=== PATIENT | male | born 1955 | race Two or more races ===

== ENCOUNTER 2017-11-04 01:16 | Emergency (ER) | payer OTHER ==
[2017-11-04] MEDS ORDERED: NS 0.9% 1000 ML* 1,000 ML IV ONE (01:41)
[2017-11-04] MEDS ORDERED: Pantoprazole IV* 40 MG IV ONE (01:42)
[2017-11-04] MEDS ORDERED: Tetan/Diph/Pertus SYR(Tdap)* 0.5 ML SYR(BOOSTRIX) use SYR IM ONE (01:42)
[2017-11-04 02:26] LABS: ABS Basophils 0.1 10^3/ul (0-0.2); ABS Eosinophils 0.1 10^3/ul (0-0.6); ABS Lymphocytes 1.8 10^3/ul (1.0-4.8); ABS Monocytes 1.3 10^3/ul (0-0.8); ABS Neutrophils 11.2 10^3/ul (1.5-7.7); ABS Nucleated RBC 0 10^3/ul; Eosinophil % 0.4 % (0-6); Hematocrit 46 % (42-52); Lymphocyte % 12.3 % (25-47); Mean Corpuscular HGB Conc 35 g/dl (31-36); Mean Corpuscular Hemoglobin 32 pg (27-31); Mean Corpuscular Volume 93 fL (80-94); Nucleated Red Blood Cells % 0; Platelet Count 254 10^3/ul (150-450); Red Blood Count 4.99 10^6/ul (4.00-5.40); Red Cell Distribution Width 13 % (10.5-15); White Blood Count 14.4 10^3/ul (3.5-10.8)
[2017-11-04 02:39] LABS: INR 0.94 (0.77-1.02)
[2017-11-04 02:43] LABS: EGFR Non-African American 73.2 (>60)
[2017-11-04 05:28] LABS: Urine Appearance Clear; Urine Blood 1+ (Negative); Urine Color Yellow; Urine Ketones Trace (Negative); Urine Protein Negative (Negative); Urine Specific Gravity 1.008 (1.010-1.030); Urine Urobilinogen Negative (Negative)
--- NOTE | 2017-11-04 07:00 | ED ---
Alejandrina Beavers Emily, scribed for Елена Lozoya MD on 11/04/17 at 0142 . Altered Mental Status - HPI Summary HPI Summary: This patient is a 62 year old M BIBA to [facility] with a chief complaint of altered mental status, confusion, which began COMPOSITION MOLDER. Pt reports that he tripped on the sidewalk. The patient rates the pain 0/10 in severity. Symptoms aggravated by nothing. Symptoms alleviated by nothing. Patient reports abrasion on left hand and burning sensation in chest. Per EMS, pt was wandering downtown and behaving confused. Per medical bracelet for epilepsy and memory loss. - History Of Current Complaint Chief Complaint: EDAltMentalStatus Stated Complaint: CONFUSION Time Seen by Provider: 11/04/17 01:23 Hx Obtained From: Patient Onset/Duration: Unknown, Still Present Timing: Constant, Lasting Hours Severity Initially: Mild Severity Currently: Mild Character: Confusion Aggravating Factor(s): Nothing Alleviating Factor(s): Nothing - Allergies/Home Medications Allergies/Adverse Reactions: Allergies Allergy/AdvReac Type Severity Reaction Status Date / Time No Known Allergies Allergy Verified 11/04/17 01:25 PMH/Surg Hx/FS Hx/Imm Hx Previously Healthy: No Sensory History: Denies: Hx Deafness Neurological History: Reports: Hx Seizures, Other Neuro Impairments/Disorders - Memory loss Infectious Disease History: No Infectious Disease History: Denies: Traveled Outside the [place] in Last 30 Days - Family History Known Family History: Positive: Unknown - Due to AMS - Social History Occupation: Unemployed Lives: With Family Alcohol Use: Occasionally Hx Substance Use: No Substance Use Type: Reports: None Hx Tobacco Use: No Smoking Status (MU): Never Smoked Tobacco Review of Systems Positive: Other - Positive burning sensation in chest Positive: Other - Positive abrasions Neurological: Other - Positive altered mental status All Other Systems Reviewed And Are Negative: Yes Physical Exam - Summary Physical Exam Summary: VITAL SIGNS: Reviewed. GENERAL: Patient is a well-developed and nourished male who is lying comfortable in the stretcher. Patient is not in any acute respiratory distress. HEAD AND FACE: No signs of trauma. No ecchymosis, hematomas or skull depressions. No sinus tenderness. EYES: PERRLA, EOMI x 2, No injected conjunctiva, no nystagmus. EARS: Hearing grossly intact. Ear canals and tympanic membranes are within normal limits. MOUTH: Oropharynx within normal limits. NECK: Supple, trachea is midline, no adenopathy, no JVD, no carotid bruit, no c- spine tenderness, neck with full ROM. CHEST: Symmetric, no tenderness at palpation LUNGS: Clear to auscultation bilaterally. No wheezing or crackles. CVS: Regular rate and rhythm, S1 and S2 present, no murmurs or gallops appreciated. ABDOMEN: Soft, Epigastric tenderness. No signs of distention. No rebound no guarding, and no masses palpated. Bowel sounds are normal. EXTREMITIES: FROM in all major joints, no edema, no cyanosis. Contraction of both hands. NEURO: Alert and oriented x 3. No acute neurological deficits. Speech is normal and follows commands. SKIN: Dry and warm. Multiple superficial lacerations over left hand Triage Information Reviewed: Yes Vital Signs On Initial Exam: Initial Vitals Temp Pulse Resp BP Pulse Ox 97.9 F 79 16 129/85 97 11/04/17 01:25 11/04/17 01:25 11/04/17 01:25 11/04/17 01:25 11/04/17 01:25 Vital Signs Reviewed: Yes Diagnostics - Vital Signs Vital Signs Temp Pulse Resp BP Pulse Ox 11/04/17 01:25 97.9 F 79 16 129/85 97 - Laboratory Result Diagrams: 11/04/17 02:15 11/04/17 02:15 Lab Statement: Any lab studies that have been ordered have been reviewed, and results considered in the medical decision making process. - CT Head CT CT Interpretation Completed By: Radiologist - Head CT reveals, per radiologist, postoperative changes without definite acute pathology. ED physician has reviewed this radiology report. - EKG 0147 Cardiac Rate: NL EKG Rhythm: Sinus Rhythm - 81 BPM EKG Interpretation: Normal axis. Normal interval. No ischemic changes Altered Mental Statu Course/Dx - Course Course Of Treatment: This patient is a 62 year old M BIBA to [facility] with a chief complaint of altered mental status, confusion, which began COMPOSITION MOLDER. He has an extensive history of seizures with multiple surgeries. Pt did likely have a seizure COMPOSITION MOLDER, resulting in his fall. Labs were unremarkable except for leukocytosis and mild irritation of CBK. We tried to contact the patients sister, as on record they live together. Sister was contacted three times, but was unreachable so a message was left. Pt cannot be discharged home by himself unless we know that his sister will pick him up or be expecting him. More medical history is needed regarding the severity of the seizures and the patient s baseline. Pt will remain in the ER pending social sciences lecturer consultation. Pt will be signed out to Dr. Sanches upon shift change pending social sciences lecturer consultation and dispo. - Diagnoses Provider Diagnoses: Seizure, Altered mental status Discharge - Sign-Out/Discharge Documenting (check all that apply): Sign-Out Patient Signing out patient TO: Austin Sanches - Upon shift change pending social sciences lecturer consult and dispo - Discharge Plan Condition: Stable Discharge Disposition Comment: Sign out to Dr. Sanches upon shift change Referrals: Non Staff,Doctor [Medical Doctor] - The documentation as recorded by the Alejandrina woods Emily accurately reflects the service I personally performed and the decisions made by me, Елена Lozoya MD.
--- NOTE | 2017-11-04 07:56 | RAD ---
Indication: Seizures. CT of the brain was performed without IV contrast. No prior study is available for comparison. The patient is status post left parietal temporal craniectomy. Encephalomalacia in the middle cranial fossa is noted. This is presumed to have been due to prior infarct or tumor resection. Clinical correlation is suggested. Bilateral thalamic neurostimulator is are noted. Prominent cerebellar atrophy is noted. Right cerebral hemisphere is otherwise unremarkable. The ventricles are normal in size. No midline shift is noted. Minimal mucosal thickening with air-fluid level in the right maxillary sinus. Ethmoid air cells are unremarkable. Mastoid air cells are unremarkable. IMPRESSION: No intracranial mass or hemorrhage is noted. Postoperative changes with left temporal craniectomy and right craniotomy. Thalamic stimulators are noted in place. Postoperative changes with encephalomalacia in the middle cranial fossa extending to the left temporal and parietal lobes.
[2017-11-04] MEDS ORDERED: LaCOSAMide TAB* 150 MG TAB PO ONE (09:20)
[2017-11-04] MEDS ORDERED: CLOBAZAM 10 MG PO ONE (09:20)
[2017-11-04] MEDS ORDERED: Aspirin 81 mg CHEW TAB* 81 MG TAB.CHEW PO ONE (09:55)
[2017-11-04] MEDS ORDERED: LaCOSAMide TAB* 150 MG TAB PO SCH (10:00)
--- NOTE | 2017-11-04 10:52 | RAD ---
INDICATION: Chest pain COMPARISON: None TECHNIQUE: PA and lateral views were obtained. FINDINGS: Bones/Soft Tissues: There are no acute bony findings. There is a right-sided deep brain stimulator. Cardiomediastinal: The cardiomediastinal silhouette is normal. Lungs: There are no infiltrates. Pleura: There are no pleural effusions. Other: None IMPRESSION: NO ACTIVE DISEASE.
[2017-11-04 15:31] VITALS: BP 116/65
--- NOTE | 2017-11-04 20:33 | CONS ---
CONSULTATION REPORT: DATE OF CONSULT: 11/04/17 - EMERGENCY DEPT PRIMARY CARE PROVIDER: Carmine Mclaughlin. HEALTHCARE PROXY: His sister. CODE STATUS: Full. SOURCE OF INFORMATION: History obtained from interview with his home health aide and discussion with ER physician. REASON FOR CONSULT: Chest pain. HISTORY OF PRESENT ILLNESS: This is a 62-year-old man with past medical history of epilepsy complicated by short-term memory loss, who was brought in by EMS after being found on the street with altered mental status. Apparently, the patient had been living in assisted living in [place]; however, frequently had episodes where he wandered and was able to get out, and therefore sister removed him from that facility and is attempting to find another place for him to reside. In the interim, he lives at home 4 blocks from his sister where he has 7 days a week home health aides from 10 a.m. to 6 p.m. However, overnight, he reports that he "left home to buy a pillow" and was found wandering the streets where he was thought to have altered mental status, presented to the emergency room. He has been in the emergency room for 12 hours and 50 minutes at the time of this consultation. Two hours prior to my evaluation, he had an episode of chest pain described to me by the emergency room physician that lasted less than 30 minutes, was substernal, nonradiating without the association of shortness of breath, diaphoresis, nausea, vomiting, or lightheadedness. He has had no recent illness , fevers, chills, or cough. Home health aide indicates that they walk for 2 to 3 hours per day and he is quite active, never complains of chest pain, although does have some substernal pain sometimes after eating that gets better after drinking hyun dash or taking Rolaids. I discussed the care with Dr. Dugan, his PCP, who saw him 8 days prior to this presentation and had also obtained a history of the substernal discomfort upon eating for which he recommended increasing frequency of Rolaids. The patient is in no discomfort at the time of my evaluation. He has 2 negative troponins and a normal EKG. PAST MEDICAL HISTORY: Includes epilepsy, GERD, short-term memory loss, hyperlipidemia. HOME MEDICATIONS: 1. Multivitamin. 2. Rosuvastatin 40 mg. 3. Citalopram 40 mg. 4. Vitamin D and calcium carbonate. 5. Vimpat 300 mg twice daily. 6. Clobazam 30 mg in the morning and 40 mg at night. ALLERGIES: No known drug allergies. FAMILY HISTORY: Unable to obtain. SOCIAL HISTORY: No tobacco. His sister lives 4 blocks away. He has home care as indicated above. REVIEW OF SYSTEMS: As per HPI. Otherwise, all other systems negative. PHYSICAL EXAM: Vitals: 107/67; heart rate is 55 when seen by this author, persistently bradycardic in the emergency room; respiratory rate is 12; 97% on room air; T-max in the emergency room is 98 Fahrenheit. Lying flat in bed, interactive, pleasant, in no apparent distress. Oropharynx is clear. He has moist mucous membranes. Sclerae are anicteric. He has regular rate and rhythm. No murmurs, rubs, or gallops. His lungs are clear to auscultation. His abdomen is soft, nontender, and nondistended. Extremities are warm and well perfused. No clubbing, cyanosis, or edema. He is oriented towards himself and his location. He knows how he got to the emergency room, was unable to identify the month. He has some skin breakdown on his left proximal interphalangeal joints with lacerations. No apparent anxiety, agitation, or depression. DIAGNOSTIC STUDIES/LAB DATA: Labs reviewed, notable for troponin I 0.02, decreased to 0.01. White blood cell count of 14.4 on presentation. EKG reviewed, sinus bradycardia, ventricular rate of 55, normal limit axis, normal limit intervals, no ST or T-wave changes. ASSESSMENT AND PLAN: This is a 62-year-old man with past medical history of epilepsy complicated by memory loss with ED stay complicated by brief episode of chest discomfort, now resolved. 1. Chest discomfort. I suspect this is more in line with his gastroesophageal reflux disease, which is relieved with Rolaids and/or hyun dash. Chest discomfort is atypical in that he does not get it with exertion and has only gotten at rest or with eating. Nevertheless, his troponins remain negative and he has nonischemic EKG. His pain is resolved. I discussed this episode of chest discomfort with Dr. Dugan and did encourage him to order a stress test if his symptoms should continue or return. 2. Hyperlipidemia. Continue Crestor. 3. Memory loss. The patient's sister is working on obtaining a better living situation that may prevent the patient from ambulating at night. 4. Disposition: Discharge home. The above care was discussed with Dr. Sanches. TIME SPENT: Greater than 60 minutes was spent in the care of this patient. [id number]/CPS #: [id number] [place]
--- NOTE | 2017-11-05 12:00 | ED ---
Emil Beavers Angela, scribed for Austin Sanches MD on 11/04/17 at 0715 . Progress - Progress Note Progress Note: This pt was signed out by Dr. Lozoya at shift change, pending disposition, awaiting social work consult. EKG at 09:54 Rate: Bradycardia of 55 bpm Rhythm: Sinus bradycardia No STEMI. Chest XR, as read by radiologist IMPRESSION: No active disease. Dr. Sanches has reviewed this report. Re-Evaluation - Re-Evaluation First Eval Re-Evaluation Time: 09:46 Comment: Pt was administered his own home medications. Second Eval Re-Evaluation Time: 09:59 Change: Worse Comment: Pt has developed chest pain, acute onset. He describes chest pain on the left side. It is not reproducible. Hx of high cholesterol. Third Eval Re-Evaluation Time: 12:13 Change: Improved Comment: Pt is currently chest pain free. I updated the pt and sister about the admission plan. They understand and agree. Course/Dx - Course Course Of Treatment: Pt was evaluated by the hospitalist services and they recommend to discharge the pt home with close follow up. He had chest pain while in the ED, the hospitalist did not feel pt required inpatient stress test. They recommended discharge. Pt will be discharged home with follow up from PCP in 2-3 days. - Diagnoses Provider Diagnoses: Chest pain, unspecified, Memory loss - Provider Notifications Discussed Care Of Patient With: Cory Young Time Discussed With Above Provider: 12:23 Instructed by Provider To: Admit As Inpatient Discharge - Sign-Out/Discharge Documenting (check all that apply): Discharge/Admit/Transfer - Discharge, Receiving Sign-Out Receiving patient FROM: Елена Lozoya - Discharge Plan Condition: Stable Disposition: HOME Patient Education Materials: Chest Pain (ED) Referrals: [facility] [Outside] Additional Instructions: Establish a primary care provider and follow up in 2-3 days. RETURN TO THE EMERGENCY DEPARTMENT FOR CHANGING OR WORSENING SYMPTOMS. - Billing Disposition and Condition Condition: STABLE Disposition: Home The documentation as recorded by the Emil woods Angela accurately reflects the service I personally performed and the decisions made by , Austin Sanches MD.
== END 2017-11-04 15:30 | disposition home or self-care (01) ==
LOC: ED 01:16
DX: G40.909 Epilepsy, unspecified, not intractable, without status epilepticus (principal); R41.82 Altered mental status, unspecified; R00.1 Bradycardia, unspecified; R07.9 Chest pain, unspecified; R41.3 Other amnesia; G93.89 Other specified disorders of brain; E78.00 Pure hypercholesterolemia, unspecified
CPT/HCPCS: 36415; 70450; 71046; 80053; 80299; 81003; 81015; 82550; 83605; 83735; 84443; 84484; 85025; 85379; 85610; 85730; 87086; 90471; 90715; 93005; 96360; 99284; A9270-GY